=== PATIENT | female | born 1940 | race Caucasian/White ===

== ENCOUNTER → 2016-11-24 | Outpatient (CLI) | payer BC ==
[~2016-11-24] MED LIST: CENTRUM SILVERSILVE2 PO; CHOL2000 OR; FLUO20CA20 OR; LEVO100T84 PO; OMEP20CA9 OR; OXYC-57 PO; [UNRECOGNIZED DRUG - OTHER] PO
[2016-11-24 13:41] LABS: BASO % 0.4 %; BASO ABS # 0.02 K/uL (0-0.2); COMPLETE YES; EOS % 1.4 %; HEMATOCRIT 40.6 % (37-47); IG% 0.4 %; LYMPH % 33.7 %; LYMPH ABS # 1.69 K/uL (1.2-3.4); MEAN CELL VOLUME 91.2 fL (80-100); MEAN CORPUSCULAR HEMOGLOBIN 29.7 pg (25-34); MEAN CORPUSCULAR HGB CONC 32.5 g/dl (32-36); MEAN PLATELET VOLUME 10.6 fL (7.4-10.4); MONO % 7.4 %; NEUT % 56.7 %; PLATELET COUNT 190 K/uL (130-400); RED BLOOD COUNT 4.45 M/uL (4.2-5.4); WHITE BLOOD COUNT 5.01 K/uL (4.8-10.8)
[2016-11-24 14:14] LABS: ALT/SGPT 17 U/L (12-78); BLOOD UREA NITROGEN 12 mg/dl (7-18); CALCIUM 9.2 mg/dl (8.5-10.1); CARBON DIOXIDE 29 mmol/L (21-32); CHLORIDE 103 mmol/L (98-107); CREATININE 0.72 mg/dl (0.60-1.20); GLUCOSE 80 mg/dl (70-99); SODIUM 140 mmol/L (136-145)
[2016-11-24 14:23] LABS: ALB/GLOB RATIO 0.9 (0.9-2); ALKALINE PHOSPHATASE 75 U/L (45-117); AST/SGOT 16 U/L (15-37)
[2016-11-24 15:06] LABS: LYME DISEASE AB IGG NEG (NEG); LYME DISEASE AB IGM NEG (NEG)
--- NOTE | 2016-11-28 11:17 | CODING QUERY MEDICAL NECESSITY ---
SUPPORTING DIAGNOSIS NEEDED Dr. Mendoza, A supporting diagnosis is required for the test/procedure performed on this patient in order for us to be reimbursed by the patient's insurance. Please provide a supporting diagnosis for the following test/procedure listed below next to the test name along with your signature. *If there is no additional diagnosis for this patient that would support the following test/procedure please document that below next to the test/procedure. Test(s)/Procedure(s) that require a supporting diagnosis: * ([id number]) B12 VITAMIN LEVEL DIAGNOSIS: DATE OF SERVICE: 11/24/16 Provider Signature: Date: Thank you Enoc Rico [facility] Information Management Once completed, please kindly fax back to [phone] For questions please call [phone]
== END | disposition home or self-care (01) ==
LOC: C.LAB 12:08
PROVIDERS: ATTEND Family Medicine
DX: E55.9 Vitamin D deficiency, unspecified (principal); R53.1 Weakness; D51.9 Vitamin B12 deficiency anemia, unspecified

== ENCOUNTER → 2016-12-05 | Outpatient (CLI) | payer BC ==
[~2016-12-05] MED LIST changes: +GADAVIST IV PRN
--- NOTE | 2016-12-05 15:13 | DIAGNOSTIC IMAGING REPORT ---
MRI LUMBAR SPINE COMBINATION CLINICAL HISTORY: Lumbar neuropathy. Right leg pain, numbness, tingling. History of spinal ependymoma. TECHNIQUE: Sagittal and axial T1, T2 and STIR images were obtained. Images were acquired before and after the administration of 8 cc of intravenous Gadavist COMPARISON STUDY: 03/30/2015 OBSERVATIONS: The vertebral bodies and posterior elements appear intact. There is no abnormal bony signal present to suggest a marrow replacement process. L1-2: No disc protrusions or extrusions. No evidence of spinal canal or neural foraminal compromise. L2-3: There is no evidence of significant disc bulge or focal herniation. There is mild facet joint hypertrophy. There is minimal triangular narrowing of the spinal canal. L3-4: There is a grade 1 spondylolisthesis of L3 on L4. There are postsurgical changes of a prior laminectomy. There is suspected arachnoiditis with clumping of the nerve roots. There is an enhancing septum like structure within the thecal sac. L4-5: There is a grade 1 spondylolisthesis of L4 and L5. There are postsurgical changes of a prior posterior laminectomy. There is deformity of thecal sac with nerve root clumping. 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 There is mild spinal canal narrowing. L5-S1: No disc protrusions or extrusions. No evidence of spinal canal or neural foraminal compromise. No abnormalities of the conus are visualized. IMPRESSION: 1. No significant change from the preceding study 2. Minimal triangular spinal canal narrowing at the L2-3 level 3. Postsurgical changes at the L3-for L4-5 levels. There is nerve root clumping, a finding likely secondary to postsurgical arachnoiditis. There is an enhancing band like adhesions/septum within the thecal sac at the L3-4 level. This remain stable. There is mild spinal canal narrowing at the L4-5 level, unchanged the prior study. 4. No evidence of recurrent neoplasm Electronically signed by: Alex Taylor M.D. 12/05/2016 3:12 PM Dictated Date/Time: 12/05/2016 3:02 PM
== END | disposition home or self-care (01) ==
LOC: C.MRI 13:53
PROVIDERS: ATTEND Family Medicine
DX: C72.1 Malignant neoplasm of cauda equina (principal); D32.1 Benign neoplasm of spinal meninges; G54.1 Lumbosacral plexus disorders

== ENCOUNTER → 2017-02-09 | Outpatient (CLI) | payer BC ==
[~2017-02-09] MED LIST changes: -GADAVIST IV PRN
--- NOTE | 2017-02-09 10:47 | DIAGNOSTIC IMAGING REPORT ---
MRI OF THE BRAIN WITHOUT CONTRAST CLINICAL HISTORY: New onset altered mental status. COMPARISON STUDY: MRI of the brain February 14, 2010. TECHNIQUE: Utilizing a 1.5 Kiki magnet and dedicated coil, multiplanar, multiecho imaging of the brain was performed without IV contrast. FINDINGS: There are no areas of restricted diffusion to suggest acute infarct. No acute intracranial hemorrhage, midline shift or mass affect is present. 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 Multiple white matter T2 hyperintense foci are noted. Slight progression is noted since prior exam. This suggests small vessel disease. No intracranial masses are identified on this unenhanced exam. Calvarial signal is maintained. Orbits and sinuses are unremarkable. There is no fluid within the mastoid air cells. IMPRESSION: 1. No acute intracranial findings. 2. Mild progression of small vessel disease since exam of February 14, 2010. 3. 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 Electronically signed by: Jorge Huang M.D. 02/09/2017 10:46 AM Dictated Date/Time: 02/09/2017 10:41 AM
== END | disposition home or self-care (01) ==
LOC: C.MRIBC 09:52
PROVIDERS: ATTEND Family Medicine
DX: R41.82 Altered mental status, unspecified (principal); E34.8 Other specified endocrine disorders

== ENCOUNTER → 2017-08-27 | Outpatient (CLI) | payer BC ==
--- NOTE | 2017-08-27 09:14 | DIAGNOSTIC IMAGING REPORT ---
ABDOMEN LIMITED (US) HISTORY: 77 years-old Female RT UPPER QUAD PAIN acute right upper quadrant abdominal pain COMPARISON: Abdominal ultrasound 11/27/2013 TECHNIQUE: Multiple real-time sonographic images of the abdominal right upper quadrant were obtained assessing grayscale appearance and color flow FINDINGS: Pancreas is partially obscured by bowel gas with the imaged portions appearing unremarkable. Cyst within the liver are redemonstrated with probable cluster of cysts or single septated cyst measuring up to 1.4 cm near the zaid hepatis. No intrahepatic biliary ductal dilation. Liver measures up to 18.1 cm in length. Gallbladder is unremarkable without shadowing cholelithiasis, wall thickening or pericholecystic fluid. Common bile duct is normal, 4 mm. Imaged right kidney is unremarkable without hydronephrosis. IMPRESSION: 1. No cholelithiasis or sonographic evidence of acute cholecystitis. 2. No biliary ductal dilation. 3. Redemonstration of hepatic cysts. The above report was generated using voice recognition software. It may contain grammatical, syntax or spelling errors. Electronically signed by: Benson Gabriel M.D. 08/27/2017 9:12 AM Dictated Date/Time: 08/27/2017 9:09 AM
[2017-08-27 09:25] LABS: BASO % 0.4 %; BASO ABS # 0.02 K/uL (0-0.2); EOS ABS # 0.11 K/uL (0-0.5); HEMATOCRIT 39.6 % (37-47); HEMOGLOBIN 12.9 g/dL (12.0-16.0); IG# 0.01 K/uL (0.00-0.02); LYMPH % 39.7 %; LYMPH ABS # 2.16 K/uL (1.2-3.4); MEAN CELL VOLUME 91.7 fL (80-100); MEAN CORPUSCULAR HEMOGLOBIN 29.9 pg (25-34); MEAN CORPUSCULAR HGB CONC 32.6 g/dl (32-36); MEAN PLATELET VOLUME 10.6 fL (7.4-10.4); MONO % 9.4 %; MONO ABS # 0.51 K/uL (0.11-0.59); NEUT % 48.3 %; NEUT ABS # 2.63 K/uL (1.4-6.5); PLATELET COUNT 194 K/uL (130-400); RED CELL DISTRIBUTION WIDTH CV 15.1 % (11.5-14.5); RED CELL DISTRIBUTION WIDTH SD 50.9 fL (36.4-46.3); WHITE BLOOD COUNT 5.44 K/uL (4.8-10.8)
[2017-08-27 09:36] LABS: ALBUMIN 3.4 gm/dl (3.4-5.0); ALT/SGPT 19 U/L (12-78); AST/SGOT 17 U/L (15-37); BLOOD UREA NITROGEN 15 mg/dl (7-18); CALCIUM 8.9 mg/dl (8.5-10.1); CARBON DIOXIDE 32 mmol/L (21-32); CHOLESTEROL 241 mg/dl (0-200); CREATININE 0.73 mg/dl (0.60-1.20); GLUCOSE 84 mg/dl (70-99); POTASSIUM 3.7 mmol/L (3.5-5.1); SODIUM 141 mmol/L (136-145); URIC ACID 3.2 mg/dl (2.6-7.2)
[2017-08-27 09:45] LABS: ALKALINE PHOSPHATASE 69 U/L (45-117); HEMOGLOBIN A1C 5.6 % (4.5-5.6); LDL CHOLESTEROL CALCULATED 148 mg/dl; TOTAL PROTEIN 7.1 gm/dl (6.4-8.2); TRANSFERRIN 245 mg/dl (200-360)
== END | disposition home or self-care (01) ==
LOC: C.ULTR 08:15
PROVIDERS: ATTEND Family Medicine
DX: R10.11 Right upper quadrant pain (principal); R73.09 Other abnormal glucose; E55.9 Vitamin D deficiency, unspecified; D51.9 Vitamin B12 deficiency anemia, unspecified; E78.9 Disorder of lipoprotein metabolism, unspecified; R53.83 Other fatigue

== ENCOUNTER → 2017-12-21 | Outpatient (CLI) | payer BC ==
--- NOTE | 2017-12-21 16:00 | DIAGNOSTIC IMAGING REPORT ---
THORACIC SPINE 2-VIEWS CLINICAL HISTORY: Spine pain. History of ependymoma. COMPARISON STUDY: September 2007 FINDINGS: There is a minor spinal curvature convex to the right. There are no acute fractures. There are mild to moderate multilevel degenerative changes. No destructive lesions are evident. IMPRESSION: 1. Degenerative change 2. No acute fractures. Electronically signed by: Alex Taylor M.D. 12/21/2017 3:58 PM Dictated Date/Time: 12/21/2017 3:57 PM
--- NOTE | 2017-12-21 16:02 | DIAGNOSTIC IMAGING REPORT ---
L-SPINE MIN 4 VIEWS ROUTINE CLINICAL HISTORY: 77 years-old Female presenting with LUMBAR PAIN HX OF EPENDYMOMA. TECHNIQUE: Frontal, bilateral oblique, lateral, and coned in lateral views of the lumbar spine were obtained. COMPARISON: 08/26/2013. FINDINGS: Osteopenia. Transitional lumbosacral anatomy. Mild levoscoliotic curvature of the lumbar spine. Redemonstration of 6 mm of anterolisthesis of L4 on L5. No compression deformity or acute subluxation. Vertebral bodies maintain normal height. Alignment is unchanged. Intervertebral disc heights preserved. Osseous neural foraminal narrowing suspected at L3-4. Laminectomy defects at L3 and L4. This is unchanged. Nonobstructive bowel gas pattern. IMPRESSION: 1. Osteopenia. 2. Unchanged anterolisthesis of L4 on L5. 3. Suspected osseous neural foraminal narrowing at L3-4, unchanged. 4. No radiographic evidence of acute osseous injury. Electronically signed by: Srikanth Macedo M.D. 12/21/2017 4:01 PM Dictated Date/Time: 12/21/2017 3:56 PM
== END | disposition home or self-care (01) ==
LOC: C.RAD 15:14
PROVIDERS: ATTEND Family Medicine
DX: M54.5 Low back pain (principal); M85.88 Other specified disorders of bone density and structure, other site; M53.86 Other specified dorsopathies, lumbar region